=== PATIENT | female | born 1955 | race Two or more races ===

== ENCOUNTER 2023-01-03 13:10 | Outpatient (CLI) | payer OTHER | END 2023-01-03 13:21 | disposition home or self-care (01) | LOC: TOM 13:10 | PROVIDERS: ATTEND Urology | DX: N20.0 Calculus of kidney (principal); N30.01 Acute cystitis with hematuria ==

== ENCOUNTER 2023-01-04 06:34 | Outpatient (CLI) | payer OTHER | END 2023-01-04 06:38 | disposition home or self-care (01) | LOC: LAB 06:34 | PROVIDERS: ATTEND Urology | DX: N39.0 Urinary tract infection, site not specified (principal); N20.0 Calculus of kidney ==